=== PATIENT | male | born 1990 | race Caucasian/White ===

== ENCOUNTER 2021-02-11 02:13 | Emergency (ER) | payer MEDICAID ==
[~2021-02-11] VITALS: Ht 180.3 cm; Wt 77.0 kg
[2021-02-11] MEDS ORDERED: KETOROLAC 30 MG/1 ML IV ONE (02:30)
[2021-02-11] MEDS ORDERED: SODIUM CHLORIDE FLUSH 10ML SYR IVF ONE (02:30)
[2021-02-11] MEDS ORDERED: ONDANSETRON 2MG/ML, 2ML IVPush ONE (02:30)
[2021-02-11] MEDS ORDERED: MORPHINE SULFATE 4 MG/ML, 1ML IVPush PRN (02:30)
[2021-02-11] MEDS ORDERED: ONDANSETRON 2MG/ML, 2ML ONE (02:37)
[2021-02-11] MEDS ORDERED: MORPHINE SULFATE 4 MG/ML, 1ML ONE (02:37)
[2021-02-11] MEDS ORDERED: KETOROLAC 30 MG/1 ML ONE (02:37)
[2021-02-11 02:41] LABS: BASOPHILS % (AUTO) 1 % (0-1); EOSINOPHILS % (AUTO) 1 % (1-7); LYMPHOCYTES % (AUTO) 22 % (22-44); MEAN CORPUSCULAR HEMOGLOBIN 29.1 pg (27.5-34.5); MEAN CORPUSCULAR HGB CONC 34.3 g/dL (33.2-36.2); MEAN PLATELET VOLUME 7.9 fL (7.4-10.4); MONOCYTES % (AUTO) 8 % (2-9); NEUTROPHILS % (AUTO) 69 % (42-75); PLATELET COUNT 198 x10^3/uL (130-400); RED BLOOD COUNT 5.01 x10^6/uL (4.38-5.82); RED CELL DISTRIBUTION WIDTH 12.8 % (9.4-14.8)
--- NOTE | 2021-02-11 02:50 | NUR ---
PIV STARTED, LABS DRAWN, PT MEDICATED PER EMAR. PT RESTING ON GURNEY W/ CALL LIGHT IN REACH, SIDE RAILS UPX2, CONNECTED TO MONITORING. LINDSEY DAVID. AWAITING CT.
[2021-02-11 02:53] LABS: ALANINE AMINOTRANSFERASE 20 U/L (12-78); ALBUMIN 3.7 g/dL (3.4-5.0); ANION GAP 3 mmol/L (5-15); CALCIUM 8.4 mg/dL (8.5-10.1); CHLORIDE 105 mmol/L (98-107); CREATININE 1.07 mg/dL (0.7-1.3)
[2021-02-11 02:55] LABS: ALKALINE PHOSPHATASE 74 U/L (45-117); BILIRUBIN,TOTAL 0.5 mg/dL (0.2-1.0); TOTAL PROTEIN 7.4 g/dL (6.4-8.2)
--- NOTE | 2021-02-11 03:01 | NUR ---
PT TO CT.
[2021-02-11] MEDS ORDERED: OMNIPAQUE 350 MG/ML, 100ML BOTTLE ONE (03:26)
--- NOTE | 2021-02-11 04:11 | NUR ---
PT SLEEPING ON GURNEY. VSS, LINDSEY. AWAITING CT READ.
--- NOTE | 2021-02-11 04:31 | NUR ---
ALL TESTS RESULTED. PT IS UP FOR RECHECK AT THIS TIME.
--- NOTE | 2021-02-11 04:41 | NUR ---
BEDSIDE REPORT FROM [facility]. PT CARE TRANSFERRED AT THIS TIME. PT RESTING ON GURNEY, NAD, NO OTHER CHANGES IN CONDITION, WCTM.
[2021-02-11 04:44] VITALS: BP 114/70
--- NOTE | 2021-02-11 05:05 | NUR ---
Patient/Caregiver given discharge instructions and they have confirmed that they understand the instructions. Patient ambulatory with steady gait. NAD, all questions answered appropriately, denies additional needs at this time. No personal belongings left in room after discharge.
== END 2021-02-11 05:07 | disposition home or self-care (01) ==
LOC: ED 04:30
DX: S02.2XXA Fracture of nasal bones, initial encounter for closed fracture (principal); S40.212A Abrasion of left shoulder, initial encounter; S09.90XA Unspecified injury of head, initial encounter; M54.2 Cervicalgia; R07.89 Other chest pain; R10.9 Unspecified abdominal pain; Z87.891 Personal history of nicotine dependence; Y04.8XXA Assault by other bodily force, initial encounter; Y93.89 Activity, other specified; Y92.89 Other specified places as the place of occurrence of the external cause; Y99.8 Other external cause status
CPT/HCPCS: 36415; 70450; 70486; 71260; 72125; 74177; 80053; 85025; 96374; 96375; 99285; J1885; J2270; J2405; Q9967